=== PATIENT | female | born 1945 | race Caucasian/White ===

== ENCOUNTER 2019-11-16 17:22 | Emergency (ER) | payer OTHER ==
[~2019-11-16] VITALS: Ht 157.5 cm; Wt 54.4 kg
[2019-11-16 18:13] VITALS: BP 130/84
--- NOTE | 2019-11-16 18:13 | NUR ---
[id number] FOUND ON THE PARKING LOT FOR ETOH INTOXICATION, LAST DRINK NOON. AT BEDSIDE FOR EVAL. VSS.
--- NOTE | 2019-11-16 18:13 | NUR ---
PLACED IN GOWN, MONITOR, AND PULSE OX.
== END 2019-11-16 18:45 | disposition home or self-care (01) ==
LOC: ER 17:27
DX: F10.129 Alcohol abuse with intoxication, unspecified (principal); Y90.9 Presence of alcohol in blood, level not specified